=== PATIENT | female | born 1935 | race Caucasian/White ===

== ENCOUNTER 2017-04-21 11:39 | Emergency (ER) | payer OTHER ==
[~2017-04-21] VITALS: Ht 170.2 cm; Wt 79.4 kg
[~2017-04-21 11:39] MED LIST: TRIA50CA4
[2017-04-21] MEDS ORDERED: ASPirin 81 mg TAB PO ONE (12:00)
[2017-04-21 12:37] LABS: Urine Bilirubin Negative (Negative); Urine Blood Negative /uL (Negative); Urine Color Yellow (Yellow); Urine Glucose Normal (Normal); Urine Ketone Negative (Negative); Urine Mucus FEW (None Seen); Urine Nitrite Negative (Negative); Urine RBC 3 /hpf (0 - 4); Urine Squamous Epithelial Cell FEW /hpf (<5); Urine Urobilinogen Normal (Negative); Urine pH 6.5 (5.0-8.0)
[2017-04-21 12:43] LABS: Basophils # (auto) 0 uL; Basophils % (auto) 0.3 % (0.0-2.0); Eosinophils # (auto) 0 uL; Eosinophils % (auto) 0.6 % (0.0-7.0); Hematocrit 45.2 % (36.0-46.0); Lymphocytes # (auto) 1.5 uL; Lymphocytes % (auto) 18.9 % (10.0-50.0); Mean Corpuscular Hemoglobin 30.6 pg (28.0-32.0); Mean Corpuscular Hgb Conc. 33.2 g/dL (32.0-36.0); Mean Corpuscular Volume 92.2 fL (80.0-100.0); Mean Platelet Volume 8.3 fL (6.9-10.8); Monocytes # (auto) 0.5 uL; Monocytes % (auto) 6.9 % (0.0-12.0); Neutrophils # (auto) 5.8 uL; Neutrophils % (auto) 73.3 % (37.0-80.0); Nucleated Red Blood Cells % 0.1 %; Platelet Count (auto) 220 10^3/uL (140-450); Red Cell Distribution Width 13.8 % (11.8-14.3); White Blood Cell 7.9 10^3/uL (4.4-10.8)
[2017-04-21 12:54] LABS: Albumin 3.8 g/dL (3.4-5.0); Alkaline Phosphatase 108 U/L (45-117); Anion Gap 8 (5-15); Aspartate Aminotransferase 21 U/L (15-37); BUN/Creatinine Ratio 16.5; Bilirubin, Total 0.6 mg/dL (0.2-1.0); Blood Urea Nitrogen 14 mg/dL (7-18); Calcium 9.1 mg/dL (8.5-10.1); Carbon Dioxide 24 mmol/L (21-32); Chloride 109 mmol/L (98-107); GFR African American 83 mL/min; GFR Non-African American 68 mL/min; Glucose 123 mg/dL (74-106); Magnesium 2.5 mg/dL (1.6-2.6); Potassium 4.8 mmol/L (3.5-5.1); Sodium 141 mmol/L (136-145); Total Protein 7.5 g/dL (6.4-8.2)
[2017-04-21 14:23] VITALS: BP 126/78
== END 2017-04-21 14:45 | disposition home or self-care (01) ==
LOC: ER 11:39
DX: I10 Essential (primary) hypertension (principal); N39.0 Urinary tract infection, site not specified; E11.9 Type 2 diabetes mellitus without complications; Z86.73 Personal history of transient ischemic attack (TIA), and cerebral infarction without residual deficits; Z91.041 Radiographic dye allergy status
CPT/HCPCS: 36415; 70450; 71020; 80053; 81001; 83735; 84484; 85025; 93005; 94761

== ENCOUNTER 2018-01-09 06:35 | Emergency (ER) | payer OTHER ==
[~2018-01-09] VITALS: Ht 157.5 cm; Wt 68.0 kg
[2018-01-09 08:03] LABS: Basophils # (auto) 0 uL; Basophils % (auto) 0.1 % (0.0-2.0); Eosinophils # (auto) 0 uL; Eosinophils % (auto) 0.5 % (0.0-7.0); Hematocrit 43.2 % (36.0-46.0); Hemoglobin 14.4 g/dL (12.2-16.2); Lymphocytes # (auto) 1.1 uL; Lymphocytes % (auto) 12.1 % (10.0-50.0); Mean Corpuscular Hemoglobin 30.9 pg (28.0-32.0); Mean Corpuscular Hgb Conc. 33.3 g/dL (32.0-36.0); Mean Corpuscular Volume 92.8 fL (80.0-100.0); Monocytes # (auto) 0.5 uL; Monocytes % (auto) 5.7 % (0.0-12.0); Neutrophils # (auto) 7.2 uL; Neutrophils % (auto) 81.6 % (37.0-80.0); Platelet Count (auto) 219 10^3/uL (140-450); Red Blood Cells 4.66 10^6/uL (4.0-5.20); Red Cell Distribution Width 13.4 % (11.8-14.3); White Blood Cell 8.8 10^3/uL (4.4-10.8)
[2018-01-09 08:10] LABS: Albumin 3.6 g/dL (3.4-5.0); BUN/Creatinine Ratio 21.7; Bilirubin, Total 0.5 mg/dL (0.2-1.0); Calcium 8.4 mg/dL (8.5-10.1); Potassium 3.7 mmol/L (3.5-5.1); Total Protein 7.2 g/dL (6.4-8.2)
[2018-01-09 08:28] LABS: INR 0.93 (0.9-1.15); Partial Thromboplastin Time 29.2 sec (23.78-33.04)
[2018-01-09 08:33] LABS: Urine Bacteria FEW /hpf (None Seen); Urine Blood Negative /uL (Negative); Urine Mucus FEW (None Seen); Urine Specific Gravity 1.014 (1.001-1.035); Urine WBC 19 /hpf (0 - 5)
[2018-01-09 09:11] VITALS: BP 178/70
== END 2018-01-09 09:12 | disposition home or self-care (01) ==
LOC: ER 06:35
DX: R04.0 Epistaxis (principal); N39.0 Urinary tract infection, site not specified; E11.9 Type 2 diabetes mellitus without complications; I10 Essential (primary) hypertension; Z86.73 Personal history of transient ischemic attack (TIA), and cerebral infarction without residual deficits
CPT/HCPCS: 30901; 36415; 80053; 81001; 85025; 85610; 85730

== ENCOUNTER 2018-12-12 02:16 | Emergency (ER) | payer OTHER ==
[~2018-12-12] VITALS: Ht 170.2 cm; Wt 77.1 kg
[2018-12-12 03:02] LABS: Basophils # (auto) 0 uL; Basophils % (auto) 0.1 % (0.0-2.0); Eosinophils # (auto) 0.1 uL; Eosinophils % (auto) 0.9 % (0.0-7.0); Hematocrit 42.9 % (36.0-46.0); Hemoglobin 14.3 g/dL (12.2-16.2); Lymphocytes # (auto) 1.6 uL; Lymphocytes % (auto) 17.9 % (10.0-50.0); Mean Corpuscular Hemoglobin 30.3 pg (28.0-32.0); Mean Corpuscular Hgb Conc. 33.4 g/dL (32.0-36.0); Mean Corpuscular Volume 90.7 fL (80.0-100.0); Monocytes # (auto) 0.6 uL; Monocytes % (auto) 6.4 % (0.0-12.0); Neutrophils # (auto) 6.5 uL; Neutrophils % (auto) 74.7 % (37.0-80.0); Platelet Count (auto) 229 10^3/uL (140-450); Red Blood Cells 4.73 10^6/uL (4.0-5.20); Red Cell Distribution Width 13.9 % (11.8-14.3); White Blood Cell 8.8 10^3/uL (4.4-10.8)
[2018-12-12 03:17] LABS: Alanine Aminotransferase 16 U/L (13-56); Albumin 3.7 g/dL (3.4-5.0); Anion Gap 9 (5-15); Aspartate Aminotransferase 10 U/L (15-37); BUN/Creatinine Ratio 20.8; Blood Urea Nitrogen 21 mg/dL (7-18); Calcium 8.8 mg/dL (8.5-10.1); Carbon Dioxide 25 mmol/L (21-32); Chloride 111 mmol/L (98-107); GFR African American 67 mL/min; GFR Non-African American 56 mL/min; Glucose 139 mg/dL (74-106); Potassium 4.1 mmol/L (3.5-5.1); Sodium 145 mmol/L (136-145)
[2018-12-12 03:21] LABS: Alkaline Phosphatase 89 U/L (45-117); Bilirubin, Total 0.4 mg/dL (0.2-1.0); Total Protein 7.4 g/dL (6.4-8.2)
[2018-12-12 07:38] VITALS: BP 134/81
[2018-12-12 08:07] LABS: Urine Bacteria NONE SEEN /hpf (None Seen); Urine Blood Negative /uL (Negative); Urine Specific Gravity 1.017 (1.001-1.035); Urine WBC 22 /hpf (0 - 5)
== END 2018-12-12 08:47 | disposition home or self-care (01) ==
LOC: ER 02:20
DX: I10 Essential (primary) hypertension (principal); N39.0 Urinary tract infection, site not specified; R51 Headache; Z86.73 Personal history of transient ischemic attack (TIA), and cerebral infarction without residual deficits; Z90.710 Acquired absence of both cervix and uterus; Z91.041 Radiographic dye allergy status
CPT/HCPCS: 36415; 70450; 71045; 80053; 81001; 84484; 85025; 93005

== ENCOUNTER 2022-07-31 05:21 | Inpatient (IN) | payer OTHER ==
[~2022-07-31] VITALS: Ht 170.2 cm; Wt 74.0 kg
[2022-07-31] MEDS ORDERED: SODIUM CHLORIDE 0.9% 1,000 ML IV ONE (07:15)
[2022-07-31 08:02] LABS: Basophils # (auto) 0 10 ^3/uL (0-0.2); Basophils % (auto) 0.1 % (0.0-2.0); Eosinophils # (auto) 0 10 ^3/uL (0-0.8); Eosinophils % (auto) 0.3 % (0.0-7.0); Hemoglobin 14.3 g/dL (12.2-16.2); Lymphocytes # (auto) 1.3 10 ^3/uL (0.4-5.4); Lymphocytes % (auto) 9.3 % (10.0-50.0); Mean Corpuscular Hemoglobin 31.5 pg (28.0-32.0); Mean Corpuscular Volume 92.7 fL (80.0-100.0); Monocytes # (auto) 0.8 10 ^3/uL (0-1.3); Monocytes % (auto) 5.6 % (0.0-12.0); Neutrophils # (auto) 11.5 10 ^3/uL (1.6-8.6); Neutrophils % (auto) 84.7 % (37.0-80.0); Nucleated Red Blood Cells % 0.1 %; Red Blood Cells 4.53 10^6/uL (4.0-5.20); Red Cell Distribution Width 13.9 % (11.8-14.3); White Blood Cell 13.6 10^3/uL (4.4-10.8)
[2022-07-31] MEDS ORDERED: CLINDAMYCIN 300MG IV 50 ML IV ONE (08:15)
[2022-07-31] MEDS ORDERED: cefTRIAXone 1GM/50ML D5W 50 ML IV ONE (08:15)
[2022-07-31 09:22] LABS: INR 0.94 (0.9-1.15); Partial Thromboplastin Time 30.4 sec (24.6-33.4)
[2022-07-31 09:27] LABS: Albumin 4.2 g/dL (3.4-5.0); BUN/Creatinine Ratio 26.3; Calcium 9.6 mg/dL (8.5-10.1); Potassium 3.8 mmol/L (3.5-5.1)
[2022-07-31 09:30] LABS: Bilirubin, Total 0.5 mg/dL (0.2-1.0); Total Protein 7.7 g/dL (6.4-8.2)
[2022-07-31] MEDS ORDERED: DEXTROSE (50%) 50ML SYRG IV PRN (10:30)
[2022-07-31] MEDS ORDERED: NITROGLYCERIN 0.4 MG SL TAB SL PRN (10:30)
[2022-07-31] MEDS ORDERED: PANTOPRAZOLE 40 MG/10 ML VIAL INJ IV ONE (10:30)
[2022-07-31] MEDS ORDERED: MORPHINE SULFATE INJ 2 MG/ml SYRG IV PRN (10:30)
[2022-07-31] MEDS ORDERED: LISI20TA28 PO (10:58)
[2022-07-31 11:05] LABS: Cholesterol 188 mg/dL (< 200); Triglycerides 84 mg/dL (< 150)
[2022-07-31 11:06] LABS: HDL Cholesterol 64 mg/dL (40-59); LDL Cholesterol 117 mg/dL (< 100)
[2022-07-31] MEDS: SOD CHL 0.45% 1,000 ML IV SCH ×2 (19:15→21:09)
[2022-07-31] MEDS: CLINDAMYCIN 600MG IV 50 ML IV SCH ×2 (21:09→22:55)
[2022-07-31] MEDS: ACCU-CHEK COMFORT CURVE STRIP VI SCH ×3 (21:09→22:55)
[2022-07-31] MEDS: InsuLIN REG 1unit/0.01ml Soln (100units/ml) SC SCH ×3 (21:09→23:46)
[2022-07-31] MEDS ORDERED: LORazepam 2MG/ML-1ML VIAL IV PRN (23:30)
[2022-08-01] MEDS: SOD CHL 0.45% 1,000 ML IV SCH ×2 (03:15→12:57)
[2022-08-01] MEDS: ACETAMINOPHEN 325 MG TAB PO PRN ×2 (03:53→22:46)
[2022-08-01 05:00] VITALS: BP 143/56
[2022-08-01 05:57] LABS: Basophils # (auto) 0 10 ^3/uL (0-0.2); Basophils % (auto) 0.2 % (0.0-2.0); Eosinophils # (auto) 0.1 10 ^3/uL (0-0.8); Eosinophils % (auto) 0.9 % (0.0-7.0); Hematocrit 33.2 % (36.0-46.0); Hemoglobin 11.3 g/dL (12.2-16.2); Lymphocytes # (auto) 1.7 10 ^3/uL (0.4-5.4); Lymphocytes % (auto) 18.9 % (10.0-50.0); Mean Corpuscular Hemoglobin 30.7 pg (28.0-32.0); Mean Corpuscular Volume 90.3 fL (80.0-100.0); Monocytes # (auto) 0.9 10 ^3/uL (0-1.3); Monocytes % (auto) 9.6 % (0.0-12.0); Neutrophils # (auto) 6.4 10 ^3/uL (1.6-8.6); Neutrophils % (auto) 70.4 % (37.0-80.0); Red Blood Cells 3.68 10^6/uL (4.0-5.20); Red Cell Distribution Width 13.7 % (11.8-14.3); White Blood Cell 9.1 10^3/uL (4.4-10.8)
[2022-08-01 06:18] LABS: Potassium 3.5 mmol/L (3.5-5.1)
[2022-08-01] MEDS: InsuLIN REG 1unit/0.01ml Soln (100units/ml) SC SCH ×4 (06:18→22:00)
[2022-08-01] MEDS: ACCU-CHEK COMFORT CURVE STRIP VI SCH ×4 (06:18→22:21)
[2022-08-01] MEDS: CLINDAMYCIN 600MG IV 50 ML IV SCH ×3 (06:23→22:45)
[2022-08-01 06:29] LABS: Albumin 3.1 g/dL (3.4-5.0); BUN/Creatinine Ratio 36.4; Bilirubin, Total 0.5 mg/dL (0.2-1.0); Calcium 8.3 mg/dL (8.5-10.1); Total Protein 5.5 g/dL (6.4-8.2)
[2022-08-01 08:12] VITALS: BP 141/46
[2022-08-01] MEDS: cefTRIAXone 1GM/50ML D5W 50 ML IV SCH (08:47)
[2022-08-01] MEDS: ENOXAPARIN SOD 40 MG/0.4 ML SYRINGE SC SCH (08:48)
[2022-08-01] MEDS: LISINOPRIL 20 MG TAB PO SCH (08:49)
[2022-08-01 09:49] LABS: Folate (Folic Acid) > 24.00 ng/mL (5.38-24)
[2022-08-01] MEDS: TRIAMTERENE/HCTZ 75/50MG TABLET PO SCH (10:00)
[2022-08-01] MEDS ORDERED: PANTOPRAZOLE 40 MG/10 ML VIAL INJ IV SCH (10:00)
[2022-08-01] MEDS ORDERED: GADOTERATE MEG 10 MMOL/20ml INJ (0.5MMOL/ml) IV ONE (11:51)
[2022-08-01 17:00] VITALS: BP 133/73
[2022-08-01 22:00] VITALS: BP 155/66
[2022-08-01] MEDS: hydrALAZINE HCL 20 MG/ML VL IV PRN (23:32)
[2022-08-01 23:39] LABS: Urine Bacteria FEW /hpf (None Seen); Urine Blood Negative /uL (Negative); Urine Specific Gravity 1.008 (1.001-1.035); Urine WBC <1 /hpf (0 - 5)
[2022-08-02] MEDS: SOD CHL 0.45% 1,000 ML IV SCH (00:50)
[2022-08-02 05:00] VITALS: BP 157/66
[2022-08-02 05:58] LABS: Basophils # (auto) 0 10 ^3/uL (0-0.2); Basophils % (auto) 0.4 % (0.0-2.0); Eosinophils # (auto) 0.1 10 ^3/uL (0-0.8); Eosinophils % (auto) 1.6 % (0.0-7.0); Hematocrit 35.9 % (36.0-46.0); Hemoglobin 12.4 g/dL (12.2-16.2); Lymphocytes # (auto) 1.5 10 ^3/uL (0.4-5.4); Lymphocytes % (auto) 18.9 % (10.0-50.0); Mean Corpuscular Hemoglobin 31.3 pg (28.0-32.0); Mean Corpuscular Hgb Conc. 34.5 g/dL (32.0-36.0); Mean Corpuscular Volume 90.8 fL (80.0-100.0); Monocytes # (auto) 0.6 10 ^3/uL (0-1.3); Monocytes % (auto) 8.3 % (0.0-12.0); Neutrophils # (auto) 5.4 10 ^3/uL (1.6-8.6); Neutrophils % (auto) 70.8 % (37.0-80.0); Red Blood Cells 3.96 10^6/uL (4.0-5.20); Red Cell Distribution Width 13.6 % (11.8-14.3); White Blood Cell 7.7 10^3/uL (4.4-10.8)
[2022-08-02] MEDS: ACCU-CHEK COMFORT CURVE STRIP VI SCH ×4 (06:01→22:28)
[2022-08-02] MEDS: InsuLIN REG 1unit/0.01ml Soln (100units/ml) SC SCH ×4 (06:02→22:47)
[2022-08-02] MEDS: CLINDAMYCIN 600MG IV 50 ML IV SCH (06:10)
[2022-08-02 06:19] LABS: Calcium 8.7 mg/dL (8.5-10.1); Potassium 3.4 mmol/L (3.5-5.1)
[2022-08-02 06:21] LABS: BUN/Creatinine Ratio 19.2
[2022-08-02 08:00] VITALS: BP 147/67
[2022-08-02 09:00] VITALS: BP 147/67
[2022-08-02] MEDS: TRIAMTERENE/HCTZ 75/50MG TABLET PO SCH (10:03)
[2022-08-02] MEDS: cefTRIAXone 1GM/50ML D5W 50 ML IV SCH (10:03)
[2022-08-02] MEDS: LISINOPRIL 20 MG TAB PO SCH (10:03)
[2022-08-02] MEDS: ENOXAPARIN SOD 40 MG/0.4 ML SYRINGE SC SCH (10:04)
[2022-08-02] MEDS ORDERED: BACLOFEN 10 MG TAB PO PRN (10:45)
[2022-08-02] MEDS ORDERED: BACLOFEN 10 MG TAB PO ONE (10:45)
[2022-08-02] MEDS ORDERED: POTASSIUM CHL 20 Meq TABLET PO ONE (10:45)
[2022-08-02] MEDS ORDERED: DEXTROSE (50%) 50ML SYRG IV PRN (11:15)
[2022-08-02] MEDS ORDERED: DexAMETHasone SOD PHOS 10MG/1ML VIAL INJ IV ONE (11:15)
[2022-08-02 13:00] VITALS: BP 109/64
[2022-08-02] MEDS: ceFAZolin 1GM/50ML 50 ML IV SCH ×2 (14:15→22:47)
[2022-08-02 16:51] VITALS: BP 127/67
[2022-08-02 22:00] VITALS: BP 141/59
[2022-08-03 05:00] VITALS: BP 141/65
[2022-08-03 05:53] LABS: BUN/Creatinine Ratio 23.5; Calcium 9.1 mg/dL (8.5-10.1); Potassium 4.2 mmol/L (3.5-5.1)
[2022-08-03] MEDS: ACCU-CHEK COMFORT CURVE STRIP VI SCH ×4 (06:07→21:14)
[2022-08-03] MEDS: InsuLIN REG 1unit/0.01ml Soln (100units/ml) SC SCH ×4 (06:10→21:15)
[2022-08-03] MEDS: ceFAZolin 1GM/50ML 50 ML IV SCH ×3 (06:16→21:17)
[2022-08-03 09:00] VITALS: BP 144/69
[2022-08-03] MEDS: DexAMETHasone SOD PHOS 10MG/1ML VIAL INJ IV SCH (10:15)
[2022-08-03] MEDS: ENOXAPARIN SOD 40 MG/0.4 ML SYRINGE SC SCH (10:15)
[2022-08-03] MEDS: LISINOPRIL 20 MG TAB PO SCH (10:16)
[2022-08-03] MEDS: TRIAMTERENE/HCTZ 75/50MG TABLET PO SCH (10:17)
[2022-08-03 13:00] VITALS: BP 143/58
[2022-08-03 17:00] VITALS: BP 165/80
[2022-08-03 20:00] VITALS: BP 155/73
[2022-08-03 21:38] VITALS: BP 160/92
[2022-08-04] MEDS: ACETAMINOPHEN 325 MG TAB PO PRN (01:23)
[2022-08-04 05:00] VITALS: BP 163/97
[2022-08-04] MEDS: ceFAZolin 1GM/50ML 50 ML IV SCH (06:22)
[2022-08-04] MEDS: InsuLIN REG 1unit/0.01ml Soln (100units/ml) SC SCH ×4 (06:23→21:04)
[2022-08-04] MEDS: ACCU-CHEK COMFORT CURVE STRIP VI SCH ×4 (06:23→20:59)
[2022-08-04 08:40] VITALS: BP 176/80
[2022-08-04] MEDS: TRIAMTERENE/HCTZ 75/50MG TABLET PO SCH (08:40)
[2022-08-04] MEDS: ENOXAPARIN SOD 40 MG/0.4 ML SYRINGE SC SCH (08:41)
[2022-08-04] MEDS: DexAMETHasone SOD PHOS 10MG/1ML VIAL INJ IV SCH (08:42)
[2022-08-04] MEDS: LISINOPRIL 20 MG TAB PO SCH (08:43)
[2022-08-04] MEDS: hydrALAZINE HCL 20 MG/ML VL IV PRN (08:45)
[2022-08-04 12:33] VITALS: BP 130/56
[2022-08-04] MEDS: CEPHALEXIN 250 MG CAP PO SCH ×2 (15:00→20:59)
[2022-08-04 16:16] VITALS: BP 122/40
[2022-08-04 20:00] VITALS: BP 128/66
[2022-08-04 22:00] VITALS: BP 128/66
[2022-08-05 05:00] VITALS: BP 125/65
[2022-08-05] MEDS: CEPHALEXIN 250 MG CAP PO SCH ×2 (06:39→14:28)
[2022-08-05] MEDS: ACCU-CHEK COMFORT CURVE STRIP VI SCH ×3 (06:39→17:17)
[2022-08-05] MEDS: InsuLIN REG 1unit/0.01ml Soln (100units/ml) SC SCH ×3 (06:40→17:46)
[2022-08-05 09:00] VITALS: BP 133/66
[2022-08-05] MEDS: DexAMETHasone SOD PHOS 10MG/1ML VIAL INJ IV SCH (10:03)
[2022-08-05] MEDS: ENOXAPARIN SOD 40 MG/0.4 ML SYRINGE SC SCH (10:03)
[2022-08-05] MEDS: LISINOPRIL 20 MG TAB PO SCH (10:04)
[2022-08-05] MEDS ORDERED: DOCUSATE SOD 100 MG CAP PO ONE (11:00)
[2022-08-05 13:00] VITALS: BP 105/66
[2022-08-05 17:00] VITALS: BP 115/46
[2022-08-05 18:21] VITALS: BP 115/46
[2022-08-05] MEDS ORDERED: DOCUSATE SOD 100 MG CAP PO SCH (22:00)
== END 2022-08-05 19:41 | disposition short-term general hospital (02) | DRG 536 ==
LOC: ER 05:21 → EDBD 05:21 → OVERFLOW 10:16 → TELE-EAST 21:05 → EAST 08-02 13:38
PROVIDERS: ADMIT Registered Nurse; ATTEND Internal Medicine
DX: S72.115A Nondisplaced fracture of greater trochanter of left femur, initial encounter for closed fracture (principal); I10 Essential (primary) hypertension; W19.XXXA Unspecified fall, initial encounter; Z20.822 Contact with and (suspected) exposure to COVID-19; G31.84 Mild cognitive impairment of uncertain or unknown etiology; X58.XXXA Exposure to other specified factors, initial encounter; E11.42 Type 2 diabetes mellitus with diabetic polyneuropathy; Z91.041 Radiographic dye allergy status; Z86.73 Personal history of transient ischemic attack (TIA), and cerebral infarction without residual deficits; Z85.118 Personal history of other malignant neoplasm of bronchus and lung; Y93.89 Activity, other specified; Y92.89 Other specified places as the place of occurrence of the external cause; Y99.8 Other external cause status
CPT/HCPCS: 36415; 70450; 70551; 71045; 72142; 72192; 80048; 80053; 80061; 81001; 82607; 82746; 82962; 83036; 83605; 84443; 84484; 85025; 85610; 85730; 87040; 87426; 93005; 93306; 93886; 93925; 93970; 96374; 97110; 97163; 97530; C9113; G0378; J0690; J0696; J1100; J1815; J3490